=== PATIENT | female | born 1975 | race African-American/Black ===

== ENCOUNTER 2016-10-24 07:34 | Emergency (ER) | payer SELFPAY ==
[~2016-10-24] VITALS: Ht 162.6 cm; Wt 125.0 kg
[~2016-10-24 07:34] MED LIST: BACT800T5 PO; LISI10TA3 PO; NAPR550T3 PO; ROBA750T PO
[2016-10-24 07:37] VITALS: BP 182/102; PULSE 75; RESP 16; TEMP 98.2; O2SAT 100
--- NOTE | 2016-10-24 09:36 | RADRPT ---
EXAM DATE/TIME: 10/24/2016 09:23 [facility] COMPARISON: No previous studies available for comparison. INDICATIONS : Cough. MEDICAL HISTORY : None. SURGICAL HISTORY : None. ENCOUNTER: Initial ACUITY: 1 day PAIN SCORE: 0/10 LOCATION: Bilateral chest FINDINGS: PA and lateral views of the chest demonstrate the lungs to be symmetrically aerated without evidence of mass, infiltrate or effusion. The cardiomediastinal contours are unremarkable. Spurs are seen in the thoracic spine. CONCLUSION: No acute disease. Ben Hull MD on October 24, 2016 at 9:32 Board Certified Radiologist. This report was verified electronically.
[2016-10-24] MEDS ORDERED: NAPR500 PO (09:57)
[2016-10-24] MEDS ORDERED: HYDR5SYP10 PO (09:57)
--- NOTE | 2016-10-24 09:57 | PD ---
HPI Chief Complaint: Cold / Flu Symptoms Time Seen by Provider: 08:36 Travel History International Travel<30 days: No Contact w/Intl Traveler<30days: No Traveled to known affect area: No History of Present Illness HPI So 40 year-old woman presents to the emergency department complaining of cough cold symptoms ongoing for the past couple weeks. Started getting fever over the past several days. She is bothered by the fact she is coughing so much and can't sleep and she is having pain in her chest when she coughs. History diabetes hypertension. No other complaints. History Past Medical History Narrative Medical Diabetes Hypertension Social History Alcohol Use: Yes (Beer Occasionally) Tobacco Use: No (quit "a long time ago") Allergies-Medications (Allergen,Severity, Reaction): Coded Allergies: Penicillin (Verified Allergy, Severe, SOB, 10/24/16) Reported Meds & Prescriptions Reported Meds & Active Scripts Active Lisinopril 10 Mg Tab 10 Mg PO DAILY Bactrim DS (Sulfamethoxazole-Trimethoprim) 800-160 Mg Tab 1 Tab PO BID Robaxin (Methocarbamol) 750 Mg Tab 750 Mg PO QID PRN 2 tabs QID for 2 days, then 1 tab QID thereafter Naproxen Sodium DS (Naproxen Sodium) 550 Mg Tab 550 Mg PO BID Review of Systems Except as stated in HPI: all other systems reviewed are Neg Physical Exam Narrative GENERAL: 40 year-old woman, no acute distress. SKIN: Warm and dry. HEAD: Atraumatic. Normocephalic. EYES: Pupils equal and round. No scleral icterus. No injection or drainage. ENT: No nasal bleeding or discharge. Mucous membranes pink and moist. NECK: Trachea midline. No JVD. CARDIOVASCULAR: Regular rate and rhythm. No murmur appreciated. RESPIRATORY: Lungs are clear to auscultation. No respiratory distress. GASTROINTESTINAL: Abdomen soft, non-tender, nondistended. Hepatic and splenic margins not palpable. MUSCULOSKELETAL: No obvious deformities. No edema. NEUROLOGICAL: Awake and alert. No obvious cranial nerve deficits. Motor grossly within normal limits. Normal speech. Data Data Last Documented VS Vital Signs Date Time Temp Pulse Resp B/P Pulse Ox O2 Delivery O2 Flow Rate FiO2 10/24/16 07:51 18 98 Room Air 10/24/16 07:37 98.2 75 182/102 Orders Chest, Pa & Lat (10/24/16 ) MDM Medical Decision Making Medical Screen Exam Complete: Yes Emergency Medical Condition: Yes Interpretation(s) Chest x-ray negative Differential Diagnosis URI, bronchitis, influenza, other Narrative Course Medical decision-making 40 year-old woman a cough cold symptoms for weak, some fever, x-ray negative for pneumonia. Recommend supportive treatment for bronchitis. Diagnosis Primary Impression: Bronchitis Additional Instructions: Use Hycodan syrup as needed for cough. Use caution as this can cause drowsiness. Do not take this medication and dry. Take Naprosyn as needed for ear pain or body aches. Follow-up with your primary doctor in the next 2-4 days. Med/Other Pt SpecificInfo: Prescription(s) given Scripts Naproxen (Naprosyn)500 Mg [id number] Mg PO BID PRN (PAIN SCALE 1 TO 10) #20 TAB Prov:Theron Cowart MD 10/24/16 Hydrocodone-Homatropine Liq 5-1.5 Mg/5 Ml Syrp5 Ml PO Q6H PRN (COUGH) #120 ML Prov:Theron Cowart MD 10/24/16 Disposition: 01 DISCHARGE HOME Condition: Stable Theron Cowart MD Oct 24, 2016 09:57
[2016-10-24 10:10] VITALS: BP 173/98; PULSE 79; RESP 18; TEMP 98.2; O2SAT 99
== END 2016-10-24 10:48 | disposition home or self-care (01) ==
LOC: NEPE 07:34
DX: J40 Bronchitis, not specified as acute or chronic (principal); E11.9 Type 2 diabetes mellitus without complications; I10 Essential (primary) hypertension; Z87.891 Personal history of nicotine dependence
CPT/HCPCS: 71020; 99283

== ENCOUNTER 2017-02-02 15:02 | Emergency (ER) | payer SELFPAY ==
[~2017-02-02] VITALS: Ht 165.1 cm; Wt 105.0 kg
[~2017-02-02 15:02] MED LIST changes: +HYDR5SYP10 PO; +NAPR500 PO
[2017-02-02 15:05] VITALS: BP 147/103; PULSE 96; RESP 18; TEMP 98.4; O2SAT 100
--- NOTE | 2017-02-02 15:09 | PD ---
Physical Exam Date Seen by Provider: Feb 02, 2017 Time Seen by Provider: 15:07 Narrative 41 yo female that presents to the ED for left knee and heel pain since 3 days. Chasing grandson stepped wrong on left heel and has had pain since. Nothing makes it better. Limping. No prior injuries. Concerned because the pain is affecting the knee. No other injuries. Vitals sign stable. Patient awaiting bed placement. Data Data Last Documented VS Vital Signs Date Time Temp Pulse Resp B/P Pulse Ox O2 Delivery O2 Flow Rate FiO2 02/02/17 15:05 98.4 96 18 147/103 100 Room Air [facility] Medical Record Reviewed: Yes Supervised Visit with RADHA: No [place] Feb 02, 2017 15:09
[2017-02-02] MEDS ORDERED: IBUPROFEN 800 MG TAB PO ONE (15:30)
--- NOTE | 2017-02-02 15:36 | PD ---
HPI Chief Complaint: Injury Time Seen by Provider: 15:35 Travel History International Travel<30 days: No Contact w/Intl Traveler<30days: No Traveled to known affect area: No History of Present Illness HPI 41-year-old female presents to emergency Department with complaint of left heel pain 3 days. She said she stepped wrong while chasing her grandson 3 days ago. Reports shocking pain into her left knee at the medial aspect when she steps on the heel. Denies knee injury. Denies paresthesias, loss of sensation , decreased range of motion, decreased strength to the affected extremity. Has been ambulatory on the affected extremity. Denies fever, chills, nausea, vomiting. Pain is worse with pressure to the heel. Decreased bowel rest. Allergies to penicillin. No other medical complaints. No other modifying factors or associated signs and symptoms. PFSH Past Medical History Diabetes: Yes Diminished Hearing: No Hypertension: Yes Immunizations Current: No ?: Not Tubal Ligation: Yes Past Surgical History Section: Yes (2 C-secs) Cholecystectomy: Yes Social History Alcohol Use: Yes (Beer Occasionally) Tobacco Use: No (quit "a long time ago") Substance Use: No Allergies-Medications (Allergen,Severity, Reaction): Coded Allergies: Penicillin (Verified Allergy, Severe, SOB, 10/24/16) Reported Meds & Prescriptions Reported Meds & Active Scripts Active Ibuprofen 800 Mg Tab 800 Mg PO Q6HR PRN Review of Systems Except as stated in HPI: all other systems reviewed are Neg Physical Exam Narrative GENERAL: Well-nourished, well-developed patient, in no acute distress SKIN: Warm and dry. HEAD: Atraumatic. Normocephalic. EYES: Pupils equal and round. No scleral icterus. No injection or drainage. ENT: Mucosa pink and moist. Airway patent. NECK: Trachea midline. CARDIOVASCULAR: Regular rate. RESPIRATORY: No accessory muscle use. GASTROINTESTINAL: Obese. MUSCULOSKELETAL: Left heel is without erythema, edema; with tenderness on palpation; no obvious deformity. Left knee with full range of motion and greater than 90 flexion; joint stable with negative drawer test; without erythema, edema, ecchymosis; tenderness to the medial aspect. Left lower extremity supple and non-tense with 2+ pedal pulses and sensory intact without erythema or edema. No obvious deformities. No clubbing. No cyanosis. No edema. NEUROLOGICAL: Awake and alert. Oriented 3. No obvious cranial nerve deficits. Motor grossly within normal limits. Normal speech. PSYCHIATRIC: Appropriate mood and affect; insight and judgment normal. Data Data Last Documented VS Vital Signs Date Time Temp Pulse Resp B/P Pulse Ox O2 Delivery O2 Flow Rate FiO2 02/02/17 15:05 98.4 96 18 147/103 100 Room Air Orders Foot, Heel Only ([id number]) (02/02/17 ) Ibuprofen (Motrin) (02/02/17 15:30) MDM Medical Decision Making Medical Screen Exam Complete: Yes Emergency Medical Condition: Yes Medical Record Reviewed: Yes Differential Diagnosis Heel contusion, heel fracture, heel sprain Narrative Course 41-year-old female with left heel injury. It is causing her to have knee pain when she walks. Denies any injury. The left knee is with full range of motion and joint is stable. I do not suspect fracture, dislocation and feel that imaging is unnecessary of the knee. Ibuprofen administered in the ER. Left heel x-ray ordered. 1608: Left heel x-ray negative for fracture. Crutches provided for support. Ibuprofen prescribed for home. Patient verbalizes understanding and agreement with treatment plan. Patient is medically cleared and stable for discharge. Discussed reasons to return to the emergency department. Instructed patient to follow up with primary care provider. Patient agrees with treatment plan. The patients vital signs are stable and the patient is stable for outpatient follow- up and treatment. Patient discharged home, stable and in no acute distress. Diagnosis Primary Impression: Contusion of left heel Qualified Code: S90.32XA - Contusion of left heel, initial encounter Referrals: Primary Care Physician Patient Instructions: Crutch Instructions (ED), General Instructions Additional Instructions: Tylenol or ibuprofen as directed and as needed for pain and inflammation Rest, ice, compress, and elevate extremity to decrease pain and inflammation Crutches for support Avoid aggravating activity; increase activity as tolerated Follow-up with primary care provider Return to the emergency department immediately with worsening symptoms Med/Other Pt SpecificInfo: Prescription(s) given Scripts Ibuprofen 800 Mg [id number] Mg PO Q6HR PRN (PAIN) #30 TAB Ref 0 Prov:Joy Solis 02/02/17 Disposition: DISCHARGE HOME Condition: Stable Joy Solis Feb 02, 2017 15:36
--- NOTE | 2017-02-02 15:54 | RADRPT ---
EXAM DATE/TIME: 02/02/2017 15:39 [facility] COMPARISON: No previous studies available for comparison. INDICATIONS : Left heel pain, fall. MEDICAL HISTORY : None. SURGICAL HISTORY : None. ENCOUNTER: Initial ACUITY: 2 days PAIN SCORE: 7/10 LOCATION: Left heel FINDINGS: Two view examination of the left heel demonstrates the trabecula to be intact with no evidence of fra cture. There is a normal calcaneal angle. The soft tissues are of normal thickness. CONCLUSION: Negative for fracture Porfirio Moss MD FACR on February 02, 2017 at 15:51 Board Certified Radiologist. This report was verified electronically.
[2017-02-02] MEDS ORDERED: IBUP800T23 PO (16:10)
== END 2017-02-02 16:52 | disposition home or self-care (01) ==
LOC: NEPK 15:02
DX: S90.32XA Contusion of left foot, initial encounter (principal); M25.562 Pain in left knee; E11.9 Type 2 diabetes mellitus without complications; I10 Essential (primary) hypertension; X58.XXXA Exposure to other specified factors, initial encounter; Y93.F9 Activity, other caregiving
CPT/HCPCS: 73650; 99283; E0113

== ENCOUNTER 2017-03-20 13:38 | Emergency (ER) | payer SELFPAY ==
[~2017-03-20] VITALS: Ht 165.1 cm; Wt 105.0 kg
[~2017-03-20 13:38] MED LIST changes: -BACT800T5 PO; -HYDR5SYP10 PO; +IBUP800T23 PO; -LISI10TA3 PO; -NAPR500 PO; -NAPR550T3 PO; -ROBA750T PO
[2017-03-20 13:43] VITALS: BP 145/88; PULSE 91; RESP 16; TEMP 98.1; O2SAT 99
--- NOTE | 2017-03-20 14:29 | PD ---
HPI Chief Complaint: Pain: Acute or Chronic Time Seen by Provider: 14:03 Travel History International Travel<30 days: No Contact w/Intl Traveler<30days: No Traveled to known affect area: No History of Present Illness HPI 41-year-old [place] female presents the emergency Department with right- sided lower back and hip pain for the past 3 weeks. Patient states she fell partially 3 weeks ago and hurt her left heel which she feels may have caused her current problem. Patient states is worse with certain movements and laying down at night. Patient describes it as a sharp pain in her right pelvis with some radiation into the leg. He has numbness or weakness. She states with rotation of the hip to the right it is worse. She is able to bear weight, but it is uncomfortable. Her pain is worse is 8/10. At rest is 3/10. She is allergic to penicillin. PFSH Past Medical History Cardiovascular Problems: Yes (HTN ) Diabetes: Yes Diminished Hearing: No Hypertension: Yes Immunizations Current: No ?: Not Tubal Ligation: Yes Past Surgical History Section: Yes (2 C-secs) Cholecystectomy: Yes Social History Alcohol Use: Yes (Beer Occasionally) Tobacco Use: No (quit "a long time ago") Substance Use: No Allergies-Medications (Allergen,Severity, Reaction): Coded Allergies: Penicillin (Verified Allergy, Severe, SOB, 10/24/16) Reported Meds & Prescriptions Reported Meds & Active Scripts Active Ibuprofen 800 Mg Tab 800 Mg PO Q6HR PRN Review of Systems Except as stated in HPI: all other systems reviewed are Neg General / Constitutional: No: Fever Eyes: No: Visual changes HENT: No: Headaches Cardiovascular: No: Chest Pain or Discomfort Respiratory: No: Shortness of Breath Gastrointestinal: No: Abdominal Pain Genitourinary: No: Dysuria Musculoskeletal: No: Pain Skin: No Rash Neurologic: No: Weakness Psychiatric: No: Depression Endocrine: No: Polydipsia Hematologic/Lymphatic: No: Easy Bruising Physical Exam Narrative GENERAL: Overweight patient in no acute distress. SKIN: Warm and dry. Normal color. Normal turgor. No rash. HEAD: Atraumatic. Normocephalic. EYES: Pupils equal and round. No scleral icterus. No injection or drainage. ENT: No nasal bleeding or discharge. Mucous membranes pink and moist. NECK: Trachea midline. No JVD. CARDIOVASCULAR: Regular rate and rhythm. RESPIRATORY: No accessory muscle use. Clear to auscultation. Breath sounds equal bilaterally. MUSCULOSKELETAL: Extremities without clubbing, cyanosis, or edema. No obvious deformities. Patient has point tenderness at the sacroiliac region of the right pelvis. Negative straight leg raise pain bilaterally. Deep tendon reflexes are 2+ and equal bilaterally. Patient is able to dorsiflex and plantar flex without difficulty. Patient has increased tenderness with rotation of the right hip laterally. NEUROLOGICAL: Awake and alert. No obvious cranial nerve deficits. Motor grossly within normal limits. Five out of 5 muscle strength in the arms and legs. Normal speech. PSYCHIATRIC: Appropriate mood and affect; insight and judgment normal. Data Data Last Documented VS Vital Signs Date Time Temp Pulse Resp B/P Pulse Ox O2 Delivery O2 Flow Rate FiO2 03/20/17 13:43 98.1 91 16 145/88 99 MDM Medical Decision Making Medical Screen Exam Complete: Yes Emergency Medical Condition: Yes Medical Record Reviewed: Yes Differential Diagnosis Right hip sprain. Sacroiliitis. Sciatica. Narrative Course Patient is felt to have sacroiliitis versus right hip sprain. Patient is given prednisone 20 mg twice a day 7 days. Patient is given Norflex 100 mg at bedtime #10. Patient take extra strength Tylenol as well for pain as needed. Patient is to use heat and ice and gentle stretching and follow-up with her primary if symptoms do not improve. Patient can always return to emergency Department with worsening symptoms if necessary. Diagnosis Primary Impression: Sacroiliitis Patient Instructions: General Instructions, Sacroiliitis (ED) Additional Instructions: Patient is felt to have sacroiliitis versus right hip sprain. Patient is given prednisone 20 mg twice a day 7 days. Patient is given Norflex 100 mg at bedtime #10. Patient take extra strength Tylenol as well for pain as needed. Patient is to use heat and ice and gentle stretching and follow-up with her primary if symptoms do not improve. Patient can always return to emergency Department with worsening symptoms if necessary. Med/Other Pt SpecificInfo: Prescription(s) given Disposition: 01 DISCHARGE HOME Condition: Stable Tim Merino Mar 20, 2017 14:29
[2017-03-20] MEDS ORDERED: ORPH100T99 PO (14:30)
[2017-03-20] MEDS ORDERED: PRED20 PO (14:30)
== END 2017-03-20 15:08 | disposition home or self-care (01) ==
LOC: NEPK 13:38
DX: M46.1 Sacroiliitis, not elsewhere classified (principal)
CPT/HCPCS: 99284

== ENCOUNTER 2017-05-10 16:35 | Emergency (ER) | payer SELFPAY ==
[~2017-05-10] VITALS: Ht 165.1 cm; Wt 120.0 kg
[~2017-05-10 16:35] MED LIST changes: +ORPH100T99 PO; +PRED20 PO
[2017-05-10 16:37] VITALS: BP 166/82; PULSE 94; RESP 20; TEMP 97.9; O2SAT 100
[2017-05-10] MEDS ORDERED: IBUP800T23 PO (18:05)
[2017-05-10] MEDS ORDERED: ROBA500T PO (18:05)
--- NOTE | 2017-05-10 18:05 | PD ---
HPI Chief Complaint: Injury Time Seen by Provider: 18:03 Travel History International Travel<30 days: No Contact w/Intl Traveler<30days: No Traveled to known affect area: No History of Present Illness HPI 41-year-old female presents to emergency Department with complaint of right lateral elbow pain after carrying a stroller upstairs yesterday. Denies injury. Denies edema to the area. Denies paresthesias, decreased range of motion to the affected extremity. Reports decreased strength; says that she as trouble opening a bottle. Pain radiates to her forearm area. Denies fever, vomiting. Has not taken any medications or drainage from his to alleviate her symptoms. Mild in severity. Pain is aggravated with palpation to the area. Allergies to penicillin. Has no other medical complaints. No other modifying factors or associated signs and symptoms. PFSH Past Medical History Cardiovascular Problems: Yes (HTN ) Diabetes: Yes Diminished Hearing: No Hypertension: Yes Immunizations Current: No ?: Not LMP: 05/01/17 Tubal Ligation: Yes Past Surgical History Section: Yes (2 C-secs) Cholecystectomy: Yes Social History Alcohol Use: Yes (Beer Occasionally) Tobacco Use: No (quit "a long time ago") Substance Use: No Allergies-Medications (Allergen,Severity, Reaction): Coded Allergies: Penicillin (Verified Allergy, Severe, SOB, 10/24/16) Reported Meds & Prescriptions Reported Meds & Active Scripts Active Ibuprofen 800 Mg Tab 800 Mg PO Q6HR PRN Robaxin (Methocarbamol) 500 Mg Tab 500 Mg PO QID PRN Prednisone 20 Mg Tab 20 Mg PO BID Orphenadrine CR (Orphenadrine Citrate) 100 Mg Tab 100 Mg PO HS Ibuprofen 800 Mg Tab 800 Mg PO Q6HR PRN Review of Systems Except as stated in HPI: all other systems reviewed are Neg Physical Exam Narrative GENERAL: Well-nourished, well-developed female patient, in no acute distress SKIN: Warm and dry. HEAD: Atraumatic. Normocephalic. EYES: Pupils equal and round. No scleral icterus. No injection or drainage. ENT: Mucosa pink and moist. Airway patent. NECK: Trachea midline. CARDIOVASCULAR: Regular rate. RESPIRATORY: No accessory muscle use. GASTROINTESTINAL: Obese. MUSCULOSKELETAL: Right elbow with full range of motion; without edema; without erythema; with tenderness on palpation to the lateral aspect to the musculature ; with decreased senior lead developer strength; sensory intact; 2+ radial pulse. Right Upper extremity supple and nontense with 2+ radial pulse and sensory intact. No obvious deformities. No clubbing. No cyanosis. No edema. NEUROLOGICAL: Awake and alert. Oriented 3. No obvious cranial nerve deficits. Motor grossly within normal limits. Normal speech. PSYCHIATRIC: Appropriate mood and affect; insight and judgment normal. Data Data Last Documented VS Vital Signs Date Time Temp Pulse Resp B/P Pulse Ox O2 Delivery O2 Flow Rate FiO2 05/10/17 16:37 97.9 94 20 166/82 100 Room Air Orders Ibuprofen (Motrin) (05/10/17 18:15) Methocarbamol (Robaxin) (05/10/17 18:15) [facility] Medical Decision Making Medical Screen Exam Complete: Yes Emergency Medical Condition: Yes Medical Record Reviewed: Yes Differential Diagnosis Muscle strain, elbow strain, tennis elbow, golfer's elbow Narrative Course 41-year-old female with pain to the musculature of the right elbow. Denies injury. Right approximate a supplement tense with 2+ radial pulses and sensory intact without erythema or edema; with full range of motion. Decreased senior lead developer strength. Pain radiates to the forearm. I do not suspect fracture dislocation of the imaging is not necessary at this time. Ibuprofen or Robaxin administering the ER. Ibuprofen Robaxin prescribed for home. Instructed patient to follow up with primary care provider. Patient verbalizes understanding and agreement with treatment plan. Patient is medically cleared and stable for discharge. Discussed reasons to return to the emergency department. Patient agrees with treatment plan. The patients vital signs are stable and the patient is stable for outpatient follow-up and treatment. Patient discharged home, stable and in no acute distress. Diagnosis Primary Impression: Strain of elbow, right Qualified Code: S56.911A - Strain of elbow, right, initial encounter Referrals: Primary Care Physician Patient Instructions: Elbow Sprain (ED), General Instructions Departure Forms: Tests/Procedures, Work Release Enter return to work date: May 14, 2017 Additional Instructions: Tylenol or ibuprofen as directed and as needed for pain Robaxin as prescribed and as needed for muscle spasms Ice to affected area to reduce pain Avoid aggravating activities; increase activity as tolerated Follow-up with primary care provider Return to emergency department immediately with worsening of symptoms Med/Other Pt SpecificInfo: Prescription(s) given Scripts Ibuprofen 800 Mg [id number] Mg PO Q6HR PRN (PAIN) #30 TAB Ref 0 Prov:Joy Solis 05/10/17 Methocarbamol (Robaxin)500 Mg [id number] Mg PO QID PRN (MUSCLE SPASM) #30 TAB Ref 0 Prov:Joy Solis 05/10/17 Disposition: 01 DISCHARGE HOME Condition: Stable Joy Solis May 10, 2017 18:05
[2017-05-10] MEDS ORDERED: METHOCARBAMOL 500 MG TAB PO ONE (18:15)
[2017-05-10] MEDS ORDERED: IBUPROFEN 800 MG TAB PO ONE (18:15)
[2017-05-10] MEDS ORDERED: LISI10TA3 PO (18:42)
[2017-05-10] MEDS ORDERED: METF500T PO (18:42)
== END 2017-05-10 18:42 | disposition home or self-care (01) ==
LOC: NEPK 16:35
DX: S56.911A Strain of unspecified muscles, fascia and tendons at forearm level, right arm, initial encounter (principal); I10 Essential (primary) hypertension; E11.9 Type 2 diabetes mellitus without complications; Z79.899 Other long term (current) drug therapy; Z88.0 Allergy status to penicillin; X50.0XXA Overexertion from strenuous movement or load, initial encounter
CPT/HCPCS: 99283

== ENCOUNTER 2018-01-14 15:09 | Emergency (ER) | payer SELFPAY ==
[~2018-01-14] VITALS: Ht 165.1 cm; Wt 107.3 kg
[~2018-01-14 15:09] MED LIST changes: +IBUP1TAB7 PO; -IBUP800T23 PO; +LISI10TA3 PO; +METF500T PO; -ORPH100T99 PO; -PRED20 PO; +ROBA500T PO
[2018-01-14 15:59] VITALS: BP 127/68; PULSE 98; RESP 20; TEMP 98.5; O2SAT 100
--- NOTE | 2018-01-14 17:14 | RADRPT ---
EXAM DATE/TIME: 01/14/2018 17:01 [facility] COMPARISON: CHEST PA & LAT, October 24, 2016, 9:23. INDICATIONS : Cough and congestion. MEDICAL HISTORY : Diabetes. SURGICAL HISTORY : None. ENCOUNTER: Initial ACUITY: 1 week PAIN SCORE: 3/10 LOCATION: Bilateral chest FINDINGS: PA and lateral views of the chest demonstrate the lungs to be symmetrically aerated without evidence of mass, infiltrate or effusion. The cardiomediastinal contours are unremarkable. Osseous structure s are intact. CONCLUSION: 1. No acute cardiopulmonary disease. Chan Espinosa MD on January 14, 2018 at 17:11 Board Certified Radiologist. This report was verified electronically.
[2018-01-14] MEDS ORDERED: RESP: ALBUTEROL 2.5 MG/IPRATROPIUM 0.5 MG NEB (SCH) INH ONE (19:00)
--- NOTE | 2018-01-14 19:01 | PD ---
HPI Chief Complaint: Cold / Flu Symptoms Time Seen by Provider: 18:49 Travel History International Travel<30 days: No Contact w/Intl Traveler<30days: No Traveled to known affect area: No History of Present Illness HPI 42-year-old female patient with history of previous diabetes, hypertension, presents to the ER today for 5 days history of cough, cold symptoms, left upper quadrant abdominal pain, nausea, vomiting, diarrhea. Pain is currently labile at an 8 out of 10. She states it feels like gas. She feels like she has to burp. Modifying Factors: None Associated Signs & Symptoms: Cough, cold symptoms, nausea, vomiting, diarrhea, left upper quadrant abdominal pains. Risk Factors: Diabetic, hypertension PFSH Past Medical History Cardiovascular Problems: Yes (HTN ) Diabetes: Yes Diminished Hearing: No Hypertension: Yes Immunizations Current: No ?: Not LMP: 1 week ago Tubal Ligation: Yes Past Surgical History Section: Yes (2 C-secs) Cholecystectomy: Yes Social History Alcohol Use: Yes (Beer Occasionally) Tobacco Use: No (quit "a long time ago") Substance Use: No Allergies-Medications (Allergen,Severity, Reaction): Coded Allergies: penicillin G (Unverified Allergy, Severe, SOB, 05/22/17) Reported Meds & Prescriptions Reported Meds & Active Scripts Active Ventolin Hfa 18 GM Inh (Albuterol Sulfate) 90 Mcg/Act Aer 2 Puff INH Q4H PRN Doxycycline Hyclate 100 Mg Cap 100 Mg PO BID Ibuprofen 800 Mg Tab 800 Mg PO Q6HR PRN Robaxin (Methocarbamol) 500 Mg Tab 500 Mg PO QID PRN Reported Metformin (Metformin HCl) 500 Mg Tab 500 Mg PO BIDPC With meals Lisinopril 10 Mg Tab 10 Mg PO DAILY Review of Systems Except as stated in HPI: all other systems reviewed are Neg Physical Exam Narrative GENERAL: Well-developed middle-aged -German female patient currently in mild distress. Awake and oriented 3. SKIN: Focused skin assessment warm/dry. HEAD: Atraumatic. Normocephalic. EYES: Pupils equal and round. No scleral icterus. No injection or drainage. ENT: No nasal bleeding or discharge. Mucous membranes pink and moist. NECK: Trachea midline. No JVD. CARDIOVASCULAR: Regular rate and rhythm. No murmur appreciated. RESPIRATORY: No accessory muscle use. Mild intermittent wheezing. Breath sounds equal bilaterally. GASTROINTESTINAL: Abdomen soft, obese, mild left upper quadrant tenderness without guarding rebound, nondistended. Hepatic and splenic margins not palpable. MUSCULOSKELETAL: No obvious deformities. No clubbing. No cyanosis. No edema. NEUROLOGICAL: Awake and alert. No obvious cranial nerve deficits. Motor grossly within normal limits. Normal speech. PSYCHIATRIC: Appropriate mood and affect; insight and judgment normal. Data Data Last Documented VS Vital Signs Date Time Temp Pulse Resp B/P (MAP) Pulse Ox O2 Delivery O2 Flow Rate FiO2 01/14/18 15:59 98.5 98 20 127/68 (87) 100 Orders Orders Complete Blood Count With Diff (01/14/18 16:02) Comprehensive Metabolic Panel (01/14/18 16:02) Lipase (01/14/18 16:02) Urinalysis - C+S If Indicated (01/14/18 16:02) Ed Urine Pregnancytest Poc (01/14/18 16:02) Chest, Pa & Lat (01/14/18 ) Albuterol-Ipratropium Neb (Duoneb Neb) (01/14/18 19:00) Albuterol-Ipratropium Neb (Duoneb Neb) (01/14/18 19:15) Dexamethasone Inj (Decadron Inj) (01/14/18 19:15) Urine Culture (01/14/18 18:35) Ed Discharge Order (01/14/18 19:38) Labs Laboratory Tests Test 01/14/18 18:35 White Blood Count 3.7 TH/MM3 Red Blood Count 4.95 MIL/MM3 Hemoglobin 15.2 GM/DL Hematocrit 44.3 % Mean Corpuscular Volume 89.5 FL Mean Corpuscular Hemoglobin 30.6 PG Mean Corpuscular Hemoglobin Concent 34.2 % Red Cell Distribution Width 12.7 % Platelet Count 238 TH/MM3 Mean Platelet Volume 7.6 FL Neutrophils (%) (Auto) 44.0 % Lymphocytes (%) (Auto) 45.2 % Monocytes (%) (Auto) 9.8 % Eosinophils (%) (Auto) 0.1 % Basophils (%) (Auto) 0.9 % Neutrophils # (Auto) 1.6 TH/MM3 Lymphocytes # (Auto) 1.7 TH/MM3 Monocytes # (Auto) 0.4 TH/MM3 Eosinophils # (Auto) 0.0 TH/MM3 Basophils # (Auto) 0.0 TH/MM3 CBC Comment DIFF FINAL Differential Comment Urine Color YELLOW Urine Turbidity CLOUDY Urine pH 5.5 Urine Specific [place] 1.020 Urine Protein 30 mg/dL Urine Glucose (UA) NEG mg/dL Urine Ketones TRACE mg/dL Urine Occult Blood SMALL Urine Nitrite NEG Urine Bilirubin NEG Urine Urobilinogen LESS THAN 2.0 MG/DL Urine Leukocyte Esterase MOD Urine RBC 5 /hpf Urine WBC 8 /hpf Urine Squamous Epithelial Cells 45 /hpf Urine Amorphous Sediment RARE Urine Bacteria MANY /hpf Urine Hyaline Casts 66 /lpf Urine Mucus MOD /lpf Microscopic Urinalysis Comment CULTURE INDICATED Blood Urea Nitrogen 13 MG/DL Creatinine 1.12 MG/DL Random Glucose 87 MG/DL Total Protein 9.7 GM/DL Albumin 3.7 GM/DL Calcium Level 8.7 MG/DL Alkaline Phosphatase 45 U/L Aspartate Amino Transf (AST/SGOT) 40 U/L Alanine Aminotransferase (ALT/SGPT) 32 U/L Total Bilirubin 0.5 MG/DL Sodium Level 134 MEQ/L Potassium Level 4.0 MEQ/L Chloride Level 102 MEQ/L Carbon Dioxide Level 25.4 MEQ/L Anion Gap 7 MEQ/L Estimat Glomerular Filtration Rate 64 ML/MIN Lipase 142 U/L MDM Medical Decision Making Medical Screen Exam Complete: Yes Emergency Medical Condition: Yes Medical Record Reviewed: Yes Interpretation(s) Laboratory Tests Test 01/14/18 18:35 White Blood Count 3.7 TH/MM3 (4.0-11.0) Lymphocytes (%) (Auto) 45.2 % (9.0-44.0) Monocytes (%) (Auto) 9.8 % (0.0-8.0) Neutrophils # (Auto) 1.6 TH/MM3 (1.8-7.7) Urine Turbidity CLOUDY (CLEAR) Urine Protein 30 mg/dL (NEG-TRACE) Urine Ketones TRACE mg/dL (NEG) Urine Occult Blood SMALL (NEG) Urine Leukocyte Esterase MOD (NEG) Urine RBC 5 /hpf (0-3) Urine WBC 8 /hpf (0-5) Urine Bacteria MANY /hpf (NONE) Urine Mucus MOD /lpf (OCC) Creatinine 1.12 MG/DL (0.50-1.00) Total Protein 9.7 GM/DL (6.4-8.2) Aspartate Amino Transf (AST/SGOT) 40 U/L (15-37) Sodium Level 134 MEQ/L (136-145) Estimat Glomerular Filtration Rate 64 ML/MIN (>89) Last 24 hours Impressions Chest X-Ray 01/14/18 0000 Signed Impressions: Service Date/Time: Sunday, January 14, 2018 17:01 - CONCLUSION: 1. No acute cardiopulmonary disease. Chan Espinosa MD Differential Diagnosis Coughing, cold symptoms, nausea, vomiting, diarrhea, abdominal pains: Gastroenteritis versus gastritis versus pancreatitis versus pneumonia versus viral syndrome Narrative Course UA shows UTI. Chest x-ray did not show any signs of acute pneumonia. Patient may have some underlying bronchitis, was given nebulizers in the ER with improvement and coughing. At this point, plan would be to release the patient would follow-up to primary care physician. Return for worsening in symptoms as necessary. The plan has been discussed with the patient and she states understanding. Diagnosis Primary Impression: Urinary tract infection Qualified Codes: N30.01 - Acute cystitis with hematuria Additional Impression: Bronchitis Med/Other Pt SpecificInfo: Prescription(s) given Scripts Albuterol 18 GM Inh (Ventolin Hfa 18 GM Inh) 90 Mcg/Act Aer 2 PUFF INH Q4H Y for SHORTNESS OF BREATH, #1 INHALER 0 Refills Prov: Antonia Cannon 01/14/18 Doxycycline Hyclate (Doxycycline Hyclate) 100 Mg Cap 100 MG PO BID for Infection, #20 CAP 0 Refills Prov: Antonia Cannon 01/14/18 Disposition: 01 DISCHARGE HOME Condition: Stable Adriano Davidson MD Jan 14, 2018 19:01
[2018-01-14 19:12] LABS: AMORPHOUS SEDIMENT, URINE RARE; BACTERIA, URINE MANY /hpf; BILIRUBIN, URINE NEG (NEG); BLOOD, URINE SMALL (NEG); GLUCOSE,URINE NEG (NEG); HYALINE CAST, URINE 66 /lpf (RARE); KETONE, URINE TRACE mg/dL (NEG); MUCUS URINE MOD /lpf (OCC); NITRITE,URINE NEG (NEG); PH, URINE 5.5 (5.0-8.5); SQUAMOUS EPITHELIAL CELL URINE 45 /hpf (0-5); URINE COLOR YELLOW (YELLW/STRAW); URINE LEUKOCYTE ESTERASE MOD (NEG)
[2018-01-14] MEDS ORDERED: DEXAMETHASONE SOD PHOS 20 MG/5 ML VIAL IM ONE (19:15)
[2018-01-14] MEDS ORDERED: RESP: ALBUTEROL 2.5 MG/IPRATROPIUM 0.5 MG NEB (SCH) NEB ONE (19:15)
[2018-01-14 19:17] LABS: AUTOMATED NEUTROPHIL # 1.6 TH/MM3 (1.8-7.7); BASOPHIL % 0.9 % (0.0-2.0); EOSINOPHIL % 0.1 % (0.0-4.0); HEMATOCRIT 44.3 % (35.0-46.0); HEMOGLOBIN 15.2 GM/DL (11.6-15.3); LYMPH % 45.2 % (9.0-44.0); LYMPHOCYTE # 1.7 TH/MM3 (1.0-4.8); MEAN CELL VOLUME 89.5 FL (80.0-100.0); MEAN CORPUSCULAR HEMOGLOBIN 30.6 PG (27.0-34.0); MEAN CORPUSCULAR HGB CONC 34.2 % (32.0-36.0); MEAN PLATELET VOLUME 7.6 FL (7.0-11.0); MONO % 9.8 % (0.0-8.0); MONOCYTE # 0.4 TH/MM3 (0-0.9); PLATELET COUNT 238 TH/MM3 (150-450); RED BLOOD COUNT 4.95 MIL/MM3 (4.00-5.30); RED CELL DISTRIBUTION WIDTH 12.7 % (11.6-17.2); WHITE BLOOD COUNT 3.7 TH/MM3 (4.0-11.0)
[2018-01-14 19:29] LABS: ALBUMIN 3.7 GM/DL (3.4-5.0); AST (GOT) 40 U/L (15-37); BICARBONATE 25.4 MEQ/L (21.0-32.0); BLOOD UREA NITROGEN 13 MG/DL (7-18); CALCIUM 8.7 MG/DL (8.5-10.1); CHLORIDE 102 MEQ/L (98-107); CREATININE 1.12 MG/DL (0.50-1.00); GLOMERULAR FILTRATION RATE 64 ML/MIN (>89); GLUCOSE,RANDOM 87 MG/DL (74-106); SODIUM (NA) 134 MEQ/L (136-145)
[2018-01-14 19:35] LABS: ALKALINE PHOSPHATASE 45 U/L (45-117); ALT (GPT) 32 U/L (10-53); TOTAL BILIRUBIN ADULT 0.5 MG/DL (0.2-1.0); TOTAL PROTEIN 9.7 GM/DL (6.4-8.2)
[2018-01-14] MEDS ORDERED: DOXY100C PO (19:41)
[2018-01-14] MEDS ORDERED: VENTAER INH (19:41)
--- NOTE | 2018-01-14 19:42 | PD ---
HPI Chief Complaint: Cold / Flu Symptoms Time Seen by Provider: 18:49 Travel History International Travel<30 days: No Contact w/Intl Traveler<30days: No Traveled to known affect area: No PFSH Past Medical History Cardiovascular Problems: Yes (HTN ) Diabetes: Yes Diminished Hearing: No Hypertension: Yes Immunizations Current: No ?: Not LMP: 1 week ago Tubal Ligation: Yes Past Surgical History Section: Yes (2 C-secs) Cholecystectomy: Yes Social History Alcohol Use: Yes (Beer Occasionally) Tobacco Use: No (quit "a long time ago") Substance Use: No Allergies-Medications (Allergen,Severity, Reaction): Coded Allergies: penicillin G (Unverified Allergy, Severe, SOB, 05/22/17) Reported Meds & Prescriptions Reported Meds & Active Scripts Active Ventolin Hfa 18 GM Inh (Albuterol Sulfate) 90 Mcg/Act Aer 2 Puff INH Q4H PRN Doxycycline Hyclate 100 Mg Cap 100 Mg PO BID Ibuprofen 800 Mg Tab 800 Mg PO Q6HR PRN Robaxin (Methocarbamol) 500 Mg Tab 500 Mg PO QID PRN Reported Metformin (Metformin HCl) 500 Mg Tab 500 Mg PO BIDPC With meals Lisinopril 10 Mg Tab 10 Mg PO DAILY Data Data Last Documented VS Vital Signs Date Time Temp Pulse Resp B/P (MAP) Pulse Ox O2 Delivery O2 Flow Rate FiO2 01/14/18 15:59 98.5 98 20 127/68 (87) 100 Orders Orders Complete Blood Count With Diff (01/14/18 16:02) Comprehensive Metabolic Panel (01/14/18 16:02) Lipase (01/14/18 16:02) Urinalysis - C+S If Indicated (01/14/18 16:02) Ed Urine Pregnancytest Poc (01/14/18 16:02) Chest, Pa & Lat (01/14/18 ) Albuterol-Ipratropium Neb (Duoneb Neb) (01/14/18 19:00) Albuterol-Ipratropium Neb (Duoneb Neb) (01/14/18 19:15) Dexamethasone Inj (Decadron Inj) (01/14/18 19:15) Urine Culture (01/14/18 18:35) Ed Discharge Order (01/14/18 19:38) Labs Laboratory Tests Test 01/14/18 18:35 White Blood Count 3.7 TH/MM3 Red Blood Count 4.95 MIL/MM3 Hemoglobin 15.2 GM/DL Hematocrit 44.3 % Mean Corpuscular Volume 89.5 FL Mean Corpuscular Hemoglobin 30.6 PG Mean Corpuscular Hemoglobin Concent 34.2 % Red Cell Distribution Width 12.7 % Platelet Count 238 TH/MM3 Mean Platelet Volume 7.6 FL Neutrophils (%) (Auto) 44.0 % Lymphocytes (%) (Auto) 45.2 % Monocytes (%) (Auto) 9.8 % Eosinophils (%) (Auto) 0.1 % Basophils (%) (Auto) 0.9 % Neutrophils # (Auto) 1.6 TH/MM3 Lymphocytes # (Auto) 1.7 TH/MM3 Monocytes # (Auto) 0.4 TH/MM3 Eosinophils # (Auto) 0.0 TH/MM3 Basophils # (Auto) 0.0 TH/MM3 CBC Comment DIFF FINAL Differential Comment Urine Color YELLOW Urine Turbidity CLOUDY Urine pH 5.5 Urine Specific [place] 1.020 Urine Protein 30 mg/dL Urine Glucose (UA) NEG mg/dL Urine Ketones TRACE mg/dL Urine Occult Blood SMALL Urine Nitrite NEG Urine Bilirubin NEG Urine Urobilinogen LESS THAN 2.0 MG/DL Urine Leukocyte Esterase MOD Urine RBC 5 /hpf Urine WBC 8 /hpf Urine Squamous Epithelial Cells 45 /hpf Urine Amorphous Sediment RARE Urine Bacteria MANY /hpf Urine Hyaline Casts 66 /lpf Urine Mucus MOD /lpf Microscopic Urinalysis Comment CULTURE INDICATED Blood Urea Nitrogen 13 MG/DL Creatinine 1.12 MG/DL Random Glucose 87 MG/DL Total Protein 9.7 GM/DL Albumin 3.7 GM/DL Calcium Level 8.7 MG/DL Alkaline Phosphatase 45 U/L Aspartate Amino Transf (AST/SGOT) 40 U/L Alanine Aminotransferase (ALT/SGPT) 32 U/L Total Bilirubin 0.5 MG/DL Sodium Level 134 MEQ/L Potassium Level 4.0 MEQ/L Chloride Level 102 MEQ/L Carbon Dioxide Level 25.4 MEQ/L Anion Gap 7 MEQ/L Estimat Glomerular Filtration Rate 64 ML/MIN Lipase 142 U/L MDM Medical Decision Making Medical Screen Exam Complete: Yes Emergency Medical Condition: Yes Medical Record Reviewed: Yes Diagnosis Primary Impression: Bronchitis Additional Impression: Urinary tract infection Qualified Codes: N30.01 - Acute cystitis with hematuria Referrals: Primary Care Physician Patient Instructions: Acute Bronchitis (ED), General Instructions, Urinary Tract Infection in Women (ED) Additional Instructions: Rest Maintain adequate oral hydration Follow-up with her primary care provider Monitor your blood glucose closely as you were given a steroid here in the emergency department. This will cause a transient rise in your blood sugar Return immediately with any acute worsening of symptoms Med/Other Pt SpecificInfo: Prescription(s) given Scripts Albuterol 18 GM Inh (Ventolin Hfa 18 GM Inh) 90 Mcg/Act Aer 2 PUFF INH Q4H Y for SHORTNESS OF BREATH, #1 INHALER 0 Refills Prov: Antonia Cannon 01/14/18 Doxycycline Hyclate (Doxycycline Hyclate) 100 Mg Cap 100 MG PO BID for Infection, #20 CAP 0 Refills Prov: Antonia Cannon 01/14/18 Disposition: 01 DISCHARGE HOME Condition: Stable Antonia Cannon Jan 14, 2018 19:42
== END 2018-01-14 20:07 | disposition home or self-care (01) ==
LOC: NEPD 15:09
DX: J40 Bronchitis, not specified as acute or chronic (principal); N30.01 Acute cystitis with hematuria; E11.9 Type 2 diabetes mellitus without complications; I10 Essential (primary) hypertension; Z79.84 Long term (current) use of oral hypoglycemic drugs; Z87.891 Personal history of nicotine dependence
CPT/HCPCS: 71046; 80053; 81001; 83690; 85025; 87086; 94640; 94664; 96372; 99284; J1100